=== PATIENT | female | born 1970 | race Caucasian/White ===

== ENCOUNTER 2021-01-22 20:21 | Emergency (ER) | payer OTHER ==
[2021-01-22 21:05] VITALS: BP 152/86
--- NOTE | 2021-01-22 21:16 | Emergency Department Report ---
ED Neck Pain/Injury HPI - General Chief Complaint: Neck Pain/Injury Stated Complaint: ABSCESS Time Seen by Provider: 01/22/21 21:05 Mode of arrival: Ambulatory Limitations: Language Barrier - History of Present Illness Initial Comments: Language interpretation by the language line with patient's permission Patient is a 50-year-old female presents emergency room with complaints of left- sided neck pain that began yesterday. She denies any fall or injury. She denies any neck stiffness, fever, nausea, vomiting, diarrhea, vision changes, numbness, weakness, pain down the arms, tingling down the arms, headache. She denies ever having this in the past. She has a past medical history of hyperlipidemia. No allergies to medications. She states that she is menopausal. She states her pain is worse with movement. - Related Data Previous Rx's Medication Instructions Recorded Last Taken Type Cyclobenzaprine [Flexeril] 10 mg PO BID PRN #14 tablet 01/22/21 Unknown Rx Menthol/Camphor [[place] 1 applicatio TP BID #18 oint...g. 01/22/21 Unknown Rx Ointment] Naproxen [EC-Naprosyn] 500 mg PO BID PRN #20 tablet. 01/22/21 Unknown Rx Allergies Allergy/AdvReac Type Severity Reaction Status Date / Time No Known Allergies Allergy Unverified 01/22/21 20:55 ED Review of Systems ROS: Stated complaint: ABSCESS Other details as noted in HPI Comment: All other systems reviewed and negative ED Past Medical Hx - Past Medical History Additional medical history: high cholesterol - Surgical History Past Surgical History?: No - Social History Smoking Status: Never Smoker - Medications Home Medications: Home Medications Medication Instructions Recorded Confirmed Last Taken Type Cyclobenzaprine [Flexeril] 10 mg PO BID PRN #14 tablet 01/22/21 Unknown Rx Menthol/Camphor [[place] 1 applicatio TP BID #18 oint...g. 01/22/21 Unknown Rx Ointment] Naproxen [EC-Naprosyn] 500 mg PO BID PRN #20 tablet. 01/22/21 Unknown Rx ED Physical Exam - General Limitations: Language Barrier General appearance: alert, in no apparent distress - Head Head exam: Present: atraumatic, normocephalic - Eye Eye exam: Present: normal appearance - ENT ENT exam: Present: mucous membranes moist - Neck Neck exam: Present: normal inspection, tenderness (left sided C-spine paraspinal muscular ttp, no midline c-spine ttp, no step offs, no deformities), full ROM. Absent: meningismus - Respiratory Respiratory exam: Present: normal lung sounds bilaterally. Absent: respiratory distress, wheezes, rales, rhonchi, stridor, chest wall tenderness, accessory muscle use, decreased breath sounds, prolonged expiratory - Cardiovascular Cardiovascular Exam: Present: regular rate, normal rhythm, normal heart sounds. Absent: systolic murmur, diastolic murmur, rubs, gallop - Back Exam Back exam: Present: normal inspection, full ROM. Absent: paraspinal tenderness, vertebral tenderness - Neurological Exam Neurological exam: Present: alert, oriented X3, CN II-XII intact, normal gait. Absent: motor sensory deficit - Psychiatric Psychiatric exam: Present: normal affect, normal mood - Skin Skin exam: Present: warm, dry, intact ED Course Vital Signs 01/22/21 20:48 Temperature 98.3 F Pulse Rate 81 Respiratory 18 Rate Blood Pressure 152/86 O2 Sat by Pulse 97 Oximetry ED Medical Decision Making - Medical Decision Making Language interpretation by the language line with patient's permission Patient is a 50-year-old female presents emergency room with complaints of left- sided neck pain that began yesterday. She denies any fall or injury. She denies any neck stiffness, fever, nausea, vomiting, diarrhea, vision changes, n umbness, weakness, pain down the arms, tingling down the arms, headache. She denies ever having this in the past. She has a past medical history of hyperlipidemia. No allergies to medications. She states that she is menopausal. She states her pain is worse with movement. Vitals are stable. On exam:left sided C-spine paraspinal muscular ttp, no midline c-spine ttp, no step offs, no deformities, no focal neuro deficits. Examination appears most consistent with muscle strain. Nexus criteria negative, C-spine can be cleared clinically. She has no meningeal signs, no midline tenderness, no step-offs, no deformities, no focal neuro deficits. Advised patient Please use medication as prescribed. Do not drive or operate heavy machinery while taking muscle relaxer Flexeril due to potential for drowsiness. May use ice pack, heating pad, rest, and epsom salt bath. Follow-up with a primary care doctor. Return to emergency room for any new or worsening symptoms. Critical care attestation.: If time is entered above; I have spent that time in minutes in the direct care of this critically ill patient, excluding procedure time. ED Disposition Clinical Impression: Cervical strain Qualifiers: Encounter type: initial encounter Qualified Code(s): S16.1XXA - Strain of muscle, fascia and tendon at neck level, initial encounter Disposition: TO HOME OR SELFCARE Is pt being admited?: No Does the pt Need Aspirin: No Condition: Stable Instructions: Muscle Strain, [id number] Additional Instructions: Please use medication as prescribed. Do not drive or operate heavy machinery while taking muscle relaxer Flexeril due to potential for drowsiness. May use ice pack, heating pad, rest, and epsom salt bath. Follow-up with a primary care doctor. Return to emergency room for any new or worsening symptoms. Utilice la medicacin segn lo prescrito. No conduzca ni maneje maquinaria pesada mientras est tomando el relajante muscular Flexeril debido al potencial de somnolencia. Puede usar compresa de hielo, almohadilla trmica, descanso y trudi de serjio de Epsom. Mahamed un seguimiento con un mdico de atencin primaria. Regrese a la eyal de emergencias por cualquier sntoma nuevo o que empeore. Prescriptions: Naproxen [EC-Naprosyn] 500 mg PO BID PRN #20 tablet. PRN Reason: pain Cyclobenzaprine [Flexeril] 10 mg PO BID PRN #14 tablet PRN Reason: pain Menthol/Camphor [[place] Ointment] 1 applicatio TP BID #18 oint...g. Referrals: your, primary care doctor [Other] - 2-3 Days Time of Disposition: 21:14 Print Language: CUBAN
== END 2021-01-22 22:00 | disposition home or self-care (01) ==
LOC: ED 20:21
DX: S16.1XXA Strain of muscle, fascia and tendon at neck level, initial encounter (principal); Z79.899 Other long term (current) drug therapy; X58.XXXA Exposure to other specified factors, initial encounter; Y93.89 Activity, other specified; Y92.89 Other specified places as the place of occurrence of the external cause; Y99.8 Other external cause status
CPT/HCPCS: 99282